=== PATIENT | male | born 2000 | race African-American/Black ===

== ENCOUNTER 2022-01-26 16:21 | Emergency (ER) | payer OTHER ==
[~2022-01-26] VITALS: Ht 175.3 cm; Wt 101.0 kg
[2022-01-26 16:30] VITALS: BP 147/64
[2022-01-27] MEDS ORDERED: IBUP-2029 MT (06:04)
== END 2022-01-26 18:58 | disposition left against medical advice (07) ==
LOC: ER 16:36
DX: Z53.21 Procedure and treatment not carried out due to patient leaving prior to being seen by health care provider (principal)
CPT/HCPCS: 71045; 93005

== ENCOUNTER 2022-01-27 04:20 | Emergency (ER) | payer OTHER ==
[~2022-01-27] VITALS: Ht 154.9 cm; Wt 92.0 kg
[2022-01-27 04:28] VITALS: BP 156/67
[2022-01-27] MEDS ORDERED: IBUP-2029 MT (06:04)
== END 2022-01-27 06:22 | disposition home or self-care (01) ==
LOC: ER 04:20
DX: R07.89 Other chest pain (principal)
CPT/HCPCS: 71045; 93005; 99283